=== PATIENT | female | born 1950 | race Caucasian/White ===

== ENCOUNTER 2019-07-28 12:48 | Outpatient (CLI) | payer MEDICARE ==
[~2019-07-28] VITALS: Ht 174 cm; Wt 62.6 kg
[2019-07-28 12:10] VITALS: BP 139/78
[2019-07-28 12:47] LABS: CALCIUM 9.8 mg/dL (8.5-10.1)
[2019-07-28 12:48] LABS: CREATININE 0.77 mg/dL (0.55-1.02)
[~2019-07-28 12:48] MED LIST: ALBU18HF INH; ATOR20TA37 PO; CARV3.122 PO; HYDR-3245 PO; LEVO112T4 PO; LIDO700A30 TD; LISI5TAB7 PO; METO25TA91 PO; MULT-709 PO; MUPI22OI2 TD; OMEP-110 PO; Pain Med PO; UMEC62.5 INH
[2019-07-28] MEDS ORDERED: ZOLEDRONIC ACID 5MG/100ML 100 ML IV ONE (14:00)
== END 2019-07-28 23:59 | disposition home or self-care (01) ==
LOC: INFUSION 12:48
PROVIDERS: ATTEND Family Medicine
DX: M81.0 Age-related osteoporosis without current pathological fracture (principal); I25.10 Atherosclerotic heart disease of native coronary artery without angina pectoris; J44.9 Chronic obstructive pulmonary disease, unspecified; I10 Essential (primary) hypertension; K21.9 Gastro-esophageal reflux disease without esophagitis; E03.9 Hypothyroidism, unspecified; Z87.891 Personal history of nicotine dependence; Z90.49 Acquired absence of other specified parts of digestive tract
CPT/HCPCS: 36415; 36591; 82310; 82565; 96365; J3489

== ENCOUNTER 2019-12-30 08:56 | Day surgery (SDC) | payer MEDICARE, OTHER ==
[~2019-12-30] VITALS: Ht 174 cm; Wt 55.4 kg
[~2019-12-30 08:56] MED LIST changes: +LISI-167 PO; +SENN-88 PO; +UMEC1DIS INH
[2019-12-30] MEDS ORDERED: LACTATED RINGERS 1,000 ML IV SCH (09:25)
[2019-12-30 09:27] VITALS: BP 104/70
[2019-12-30] MEDS ORDERED: LIDOCAINE-MPF 1%, 2ML INFIL ONE (09:30)
[2019-12-30] MEDS ORDERED: FENTANYL PF 100 MCG/2ML ONE (11:44)
[2019-12-30] MEDS ORDERED: EPHEDRINE 50 MG/ML, 1ML ONE (11:48)
[2019-12-30] MEDS ORDERED: LABETALOL 5MG/ML, 20ML IV PRN (12:30)
[2019-12-30] MEDS ORDERED: PROMETHAZINE 25 MG/ML, 1ML IV PRN (12:30)
[2019-12-30] MEDS ORDERED: ONDANSETRON 2MG/ML, 2ML IV PRN (12:30)
[2019-12-30] MEDS ORDERED: OXYcodone 5 MG/5 ML ORAL.SOL UDC PO PRN (12:30)
[2019-12-30] MEDS ORDERED: ALBUTEROL/IPRATROPIUM 2.5MG/0.5MG, 3 ML NPPB PRN (12:30)
[2019-12-30] MEDS ORDERED: LORazepam 2 MG/ML, 1ML IVPush PRN (12:30)
[2019-12-30] MEDS ORDERED: PROMETHAZINE 25 MG SUPP PR PRN (12:30)
[2019-12-30] MEDS ORDERED: ACETAMINOPHEN 325 MG TABLET PO PRN (12:30)
[2019-12-30] MEDS ORDERED: FENTANYL PF 100 MCG/2ML IV PRN (12:30)
[2019-12-30] MEDS ORDERED: hydrALAzine 20 MG/ML, 1ML IV PRN (12:30)
[2019-12-30] MEDS ORDERED: PROMETHAZINE 12.5 MG SUPP PR PRN (12:30)
[2019-12-30] MEDS ORDERED: ONDANSETRON ODT 8 MG PO PRN (12:30)
[2019-12-30] MEDS ORDERED: GLYCOPYRROLATE 0.2MG/1ML, 5ML ONE (12:58)
[2019-12-30] MEDS ORDERED: CEFAZOLIN 1,000 MG ONE (12:58)
[2019-12-30] MEDS ORDERED: ROCURONIUM 10MG/ML,5ML ONE (12:58)
[2019-12-30] MEDS ORDERED: SUCCINYLCHOLINE 20 MG/ML, 10ML ONE (12:58)
[2019-12-30] MEDS ORDERED: PROPOFOL 10 MG/ML, 20ML ONE (12:58)
[2019-12-30] MEDS ORDERED: LIDOCAINE-MPF 2% ,5ML ONE (12:58)
[2019-12-30] MEDS ORDERED: ONDANSETRON 2MG/ML, 2ML ONE (12:58)
[2019-12-30] MEDS ORDERED: NEOSTIGMINE 1 MG/ML, 10ML ONE (12:58)
[2019-12-30] MEDS ORDERED: DEXAMETHASONE 4 MG/ML, 1ML ONE (12:58)
[2019-12-30] MEDS ORDERED: OMNIPAQUE 350 MG/ML, 50 ML BOTTLE ONE (13:48)
== END 2019-12-30 14:45 | disposition home or self-care (01) ==
LOC: OUT 08:56
PROVIDERS: ATTEND Internal Medicine Geriatric Medicine
DX: K86.89 Other specified diseases of pancreas (principal); K83.1 Obstruction of bile duct; C25.0 Malignant neoplasm of head of pancreas; I10 Essential (primary) hypertension; J44.9 Chronic obstructive pulmonary disease, unspecified; Z90.49 Acquired absence of other specified parts of digestive tract; Z83.3 Family history of diabetes mellitus
CPT/HCPCS: 43242; 43274; 74328; 88172; 88173; 88307; 93005; C1769; C1894; C2625; J0330; J0690; J1100; J2405; J2704; J2710; J3010; J7120; Q9967

== ENCOUNTER 2020-01-19 13:03 | Day surgery (SDC) | payer MEDICARE, OTHER ==
[~2020-01-19] VITALS: Ht 172.7 cm; Wt 52.8 kg
[~2020-01-19 13:03] MED LIST changes: +OXYC5TAB2 PO; +POTA20TA89 PO; +potassium PO
[2020-01-19 13:27] VITALS: BP 122/84
[2020-01-19] MEDS ORDERED: CHLORHEXIDINE 15 ML UDC MM ONE (13:30)
[2020-01-19] MEDS ORDERED: CHLORHEXIDINE 15 ML UDC ONE (13:32)
[2020-01-19] MEDS ORDERED: PROPOFOL 10 MG/ML, 20ML ONE (13:34)
[2020-01-19] MEDS ORDERED: NEOSTIGMINE 1 MG/ML, 10ML ONE (13:35)
[2020-01-19] MEDS ORDERED: ROCURONIUM 10MG/ML,5ML ONE (13:35)
[2020-01-19] MEDS ORDERED: ONDANSETRON 2MG/ML, 2ML ONE (13:36)
[2020-01-19] MEDS ORDERED: DEXAMETHASONE 4 MG/ML, 1ML ONE ×2 (13:36)
[2020-01-19] MEDS ORDERED: GLYCOPYRROLATE 0.2MG/1ML, 5ML ONE (13:36)
[2020-01-19] MEDS ORDERED: LACTATED RINGERS 1,000 ML IV SCH (14:00)
[2020-01-19] MEDS ORDERED: FENTANYL PF 250 MCG/5ML ONE (14:42)
[2020-01-19] MEDS ORDERED: LABETALOL 5MG/ML, 20ML IV PRN (15:00)
[2020-01-19] MEDS ORDERED: OXYcodone 5 MG/5 ML ORAL.SOL UDC PO PRN (15:00)
[2020-01-19] MEDS ORDERED: ALBUTEROL SULFATE 2.5 MG/3 ML NPPB PRN (15:00)
[2020-01-19] MEDS ORDERED: morphine SULFATE 10 MG/ML, 1ML IVPush PRN (15:00)
[2020-01-19] MEDS ORDERED: PROMETHAZINE 25 MG/ML, 1ML IVPush PRN (15:00)
[2020-01-19] MEDS ORDERED: HYDROmorphone 1 MG/ML, 1ML INJ IVPush PRN (15:00)
[2020-01-19] MEDS ORDERED: HALOPERIDOL 5 MG/ML IV PRN (15:00)
[2020-01-19] MEDS ORDERED: FENTANYL PF 100 MCG/2ML IV PRN (15:00)
[2020-01-19] MEDS ORDERED: hydrALAzine 20 MG/ML, 1ML IV PRN (15:00)
[2020-01-19] MEDS ORDERED: MEPERIDINE/PF 25MG/0.5ML IVPush PRN (15:00)
[2020-01-19] MEDS ORDERED: SUGAMMADEX 200 MG/2 ML IVPush ONE (15:43)
[2020-01-19] MEDS ORDERED: EPINEPHRINE SYRINGE 0.1 MG/ML, 10ML ONE (15:43)
== END 2020-01-19 17:40 | disposition home or self-care (01) ==
LOC: OUT 13:03
PROVIDERS: ATTEND Internal Medicine
DX: T85.590A Other mechanical complication of bile duct prosthesis, initial encounter (principal); C25.9 Malignant neoplasm of pancreas, unspecified; K83.1 Obstruction of bile duct; E78.5 Hyperlipidemia, unspecified; E03.9 Hypothyroidism, unspecified; I10 Essential (primary) hypertension; J44.9 Chronic obstructive pulmonary disease, unspecified; K21.9 Gastro-esophageal reflux disease without esophagitis; Z79.890 Hormone replacement therapy; Z79.891 Long term (current) use of opiate analgesic; Z79.899 Other long term (current) drug therapy; Z87.891 Personal history of nicotine dependence; Z83.3 Family history of diabetes mellitus; Y83.8 Other surgical procedures as the cause of abnormal reaction of the patient, or of later complication, without mention of misadventure at the time of the procedure
CPT/HCPCS: 43276; 74328; C2625; J1100; J2405; J2704; J2710; J3010; J7120; U0001

== ENCOUNTER 2020-01-22 07:46 | Day surgery (SDC) | payer MEDICARE, OTHER ==
[~2020-01-22] VITALS: Ht 172.7 cm; Wt 53.4 kg
[2020-01-22] MEDS ORDERED: LACTATED RINGERS 1,000 ML IV SCH (08:16)
[2020-01-22] MEDS ORDERED: CHLORHEXIDINE 15 ML UDC ONE (08:22)
[2020-01-22] MEDS ORDERED: CHLORHEXIDINE 15 ML UDC MM ONE (08:30)
[2020-01-22 09:01] VITALS: BP 103/71
[2020-01-22] MEDS ORDERED: HEPARIN 1,000 UNITS/ML, 10ML ONE (09:16)
[2020-01-22] MEDS ORDERED: BUPIVACAINE/PF-EPI 0.5% 1:200K ONE (09:16)
[2020-01-22] MEDS ORDERED: HEPARIN 5,000 UNITS/ML, 1ML ONE (09:16)
[2020-01-22] MEDS ORDERED: LIDOCAINE 1%, 20ML ONE (09:16)
[2020-01-22] MEDS ORDERED: FENTANYL PF 100 MCG/2ML ONE (09:26)
[2020-01-22] MEDS ORDERED: OXYcodone 5 MG/5 ML ORAL.SOL UDC PO PRN (10:00)
[2020-01-22] MEDS ORDERED: HALOPERIDOL 5 MG/ML IV PRN (10:00)
[2020-01-22] MEDS ORDERED: hydrALAzine 20 MG/ML, 1ML IV PRN (10:00)
[2020-01-22] MEDS ORDERED: ALBUTEROL/IPRATROPIUM 2.5MG/0.5MG, 3 ML NPPB PRN (10:00)
[2020-01-22] MEDS ORDERED: MEPERIDINE/PF 25MG/0.5ML IVPush PRN (10:00)
[2020-01-22] MEDS ORDERED: HYDROmorphone 1 MG/ML, 1ML INJ IVPush PRN (10:00)
[2020-01-22] MEDS ORDERED: PROMETHAZINE 25 MG/ML, 1ML IVPush PRN (10:00)
[2020-01-22] MEDS ORDERED: FENTANYL PF 100 MCG/2ML IV PRN (10:00)
[2020-01-22] MEDS ORDERED: LABETALOL 5MG/ML, 20ML IV PRN (10:00)
[2020-01-22] MEDS ORDERED: EPHEDRINE 50 MG/ML, 1ML ONE (10:02)
[2020-01-22] MEDS ORDERED: NEOSTIGMINE 1 MG/ML, 10ML ONE (10:47)
[2020-01-22] MEDS ORDERED: SUCCINYLCHOLINE 20 MG/ML, 10ML ONE (10:47)
[2020-01-22] MEDS ORDERED: ROCURONIUM 10MG/ML,5ML ONE (10:47)
[2020-01-22] MEDS ORDERED: DEXAMETHASONE 4 MG/ML, 1ML ONE (10:47)
[2020-01-22] MEDS ORDERED: GLYCOPYRROLATE 0.2MG/1ML, 5ML ONE (10:47)
[2020-01-22] MEDS ORDERED: PROPOFOL 10 MG/ML, 20ML ONE (10:47)
[2020-01-22] MEDS ORDERED: ONDANSETRON 2MG/ML, 2ML ONE (10:47)
[2020-01-22] MEDS ORDERED: CEFAZOLIN 1,000 MG ONE (10:47)
== END 2020-01-22 13:40 | disposition home or self-care (01) ==
LOC: OUT 07:46
PROVIDERS: ATTEND Surgery
DX: C25.0 Malignant neoplasm of head of pancreas (principal); E03.9 Hypothyroidism, unspecified; K21.9 Gastro-esophageal reflux disease without esophagitis; J44.9 Chronic obstructive pulmonary disease, unspecified; I10 Essential (primary) hypertension; F17.200 Nicotine dependence, unspecified, uncomplicated; Z79.890 Hormone replacement therapy; Z79.899 Other long term (current) drug therapy; Z90.49 Acquired absence of other specified parts of digestive tract; Z98.890 Other specified postprocedural states
CPT/HCPCS: 36561; 71045; 77001; C1788; J0330; J0690; J1100; J1644; J2405; J2704; J3010; J7120; 76000; J2710